=== PATIENT | female | born 1985 | race African-American/Black ===

== ENCOUNTER 2016-10-13 22:31 | Emergency (ER) | payer SELFPAY ==
[2016-10-13 23:04] VITALS: BP 108/63; PULSE 81; TEMP 98.4; BMI 26.8
--- NOTE | 2016-10-13 23:52 | DIRPT ---
CLINICAL DATA: Initial evaluation for acute cough for 2 weeks. EXAM: CHEST 2 VIEW COMPARISON: Prior radiograph from 02/18/2016. FINDINGS: The cardiac and mediastinal silhouettes are stable in size and contour, and remain within normal limits. The lungs are normally inflated. No airspace consolidation, pleural effusion, or pulmonary edema is identified. There is no pneumothorax. No acute osseous abnormality identified. IMPRESSION: No active cardiopulmonary disease. Electronically Signed By: Satya Schafer M.D. On: 10/13/2016 23:49
[2016-10-14] MEDS ORDERED: METHYLPREDNISOLONE 125 MG/2 ML VIAL IM ONE (00:09)
[2016-10-14] MEDS ORDERED: TUSSIONEX 5 ML ORAL SYRINGE PO ONE (00:09)
[2016-10-14] MEDS: AZITHROMYCIN 250 MG TAB PO ONE (00:15)
[2016-10-14] MEDS ORDERED: CEFTRIAXONE 250 MG VIAL IM SCH (00:15)
[2016-10-14] MEDS ORDERED: LIDOCAINE 1% 2 ML (METHYLPARABEN FREE) ONE (00:38)
--- NOTE | 2016-10-14 00:38 | EDPRACDOC ---
- General Information Chief Complaint: Flu-Like Symptoms Stated Complaint: COUGH Time Seen by Provider: 10/13/16 23:57 Information Source: Patient Home Medications: Home Medications Azithromycin [Zithromax] 250 mg PO DAILY #6 tablet 10/14/16 Benzonatate [Tessalon] 200 mg PO TID #20 per 10/14/16 Guaifenesin/Codeine Phosphate [Cheratussin AC Syrup] 5 ml PO Q4-6H #180 liquid 10/14/16 Prednisone [Deltasone, Orasone] 20 mg PO BID #12 tab 10/14/16 Allergies/Adverse Reactions: Allergies Allergy/AdvReac Type Severity Reaction Status Date / Time No Known Allergies Allergy Verified 10/13/16 23:04 - History of Present Illness Onset: 2 weeks HPI: PT PRESENTS WITH COUGH, NASAL CONGESTION, FEVER AND NOT FEELING WELL. STATES THIS HAS BEEN ONGOING FOR THE PAST 2 WEEKS AND IS WORSENING Shortness of Breath: Mild Relevant History of: Reports: None Cough: Reports: Productive, Green, Yellow Rhinorrhea: Reports: Clear Fever Severity/Quality: Reports: subjective Ear Symptoms: Reports: None Recently treated infections: Denies: Otitis media, Pneumonia, URI Oral Intake: Normal Urinary Output: Normal ED Past Medical History - History Reviewed Yes Nurses notes reviewed and agree except as marked - Patient Medical History Psychological History: Denies: Depression - Social Medical History Smoking Status: Heavy tobacco smoker (5 or more cigarettes/day or daily pipe/ cigar) EDM Review of Systems - Review of Systems ROS Negative Except as Marked: Yes All systems reviewed and were negative except as marked - Physical Exam Constitutional: Alert Oriented to: Time, Person, Place Last recorded Vital Signs: Last Vital Signs Temp 98.4 F 10/13/16 23:02 Pulse 81 10/13/16 23:02 Resp 20 10/13/16 23:02 BP 108/63 10/13/16 23:02 Pulse Ox 95 10/13/16 23:02 Oxygen Pulse Oxygen Saturation 95 O2 Device Room Air Oxygen Flow Rate Fraction of Inspired Oxygen ( FIO2) - HEENT Head: Normal ( normocephalic) Eye Exam: Normal (PERRL, EOMI, Sclera white) Oropharynx: Normal (Pharynx:Moist without exudate,Gums-no swelling) Nose: No Symptoms Reported (septum midline) Neck: Normal (FROM, trachea at midline) - Respiratory/Cardiovascular Respiratory: Rhonchi, Wheezes Cardiovascular: Normal (RRR without murmur, gallop or rub) - GI Auscultation: Normal (NABS) Palpation: Normal (Soft,No rebound or guarding, non distended) Tenderness: Non tender Gerber's Sign: Negative Rectal Exam: Deferred - Musculoskeletal Back: Normal (Non-Tender) Extremities: Normal (Normal tone, Pulses 2+ No cyanosis or edema, FROM) - Integumentary Skin: Normal, Warm, Dry Lymphatics: Normal (no adenopathy) - Neurologic Memory Impaired: Normal Motor Function: Normal (Normal tone, Pulses 2+ No cyanosis or edema, FROM) Cranial Nerve: Normal (CN II-X11 intact sensation, strength 5/5) Cerebellar: Normal Mood Description: Normal Perception: Normal - Differential Diagnosis Bronchitis, URI - Results Microbiology 10/14/16 00:06 Influenza Type A Antigen Screen - Final N/P - Naso/Pharyngeal NEGATIVE Please note: A NEGATIVE result does not exclude an influenza virus infection. It is a presumptive result and, if required, confirmation should be done using either a virus culture or an FDA-cleared influenza A&B molecular assay. ("NORMAL" value = "NEGATIVE".) Influenza Type B Antigen Screen - Final NEGATIVE Please note: A NEGATIVE result does not exclude an influenza virus infection. It is a presumptive result and, if required, confirmation should be done using either a virus culture or an FDA-cleared influenza A&B molecular assay. ("NORMAL" value = "NEGATIVE".) 10/14/16 00:06 Group A Streptococcus Rapid Screen - Final Throat - Rapid Strep NEGATIVE ("NORMAL" value = "NEGATIVE".) Decision Time to Discharge: 00:37 - Departure Disposition: Home Condition: Stable Final Diagnosis: Acute upper respiratory infection Instructions: Upper Respiratory Infection (ED) Education/Counseling Given To: Patient Education/Counseling Given Regarding: Diagnosis, Treatment, Prognosis, Follow Up Referrals: Tenzin Aguirre II, MD [Staff Physician] - One Week Prescriptions: Azithromycin [Zithromax] 250 mg PO DAILY #6 tablet Benzonatate [Tessalon] 200 mg PO TID #20 per Guaifenesin/Codeine Phosphate [Cheratussin AC Syrup] 5 ml PO Q4-6H #180 liquid Prednisone [Deltasone, Orasone] 20 mg PO BID #12 tab Additional Instructions: INCREASE FLUID INTAKE. FOLLOW UP WITH PRIMARY CARE PROVIDER NEXT WEEK. TAKE ALL ANTIBIOTICS PRESCRIBED. RETURN TO THE ED FOR WORSENING SYMPTOMS OR CONCERNS.
== END 2016-10-14 00:50 | disposition home or self-care (01) ==
LOC: ED 22:31
DX: J06.9 Acute upper respiratory infection, unspecified (principal)
CPT/HCPCS: 71020; 87804; 87880; 96372; 99282; J0696; J2001; J2930; J3490